=== PATIENT | female | born 1990 | race Hispanic/Latino ===

== ENCOUNTER 2018-05-20 16:56 | Inpatient (IN) | payer MEDICAID, OTHER ==
[2018-05-20 18:53] LABS: Hematocrit 27.4 % (30.3-42.9); Hemoglobin 9.2 gm/dl (10.1-14.3); Mean Corpuscular HGB Conc 34 % (30-34); Mean Corpuscular Volume 87 fl (79-97); Platelet Count 266 K/mm3 (140-440); Red Blood Count 3.15 M/mm3 (3.65-5.03); Red Cell Distribution Width 13.8 % (13.2-15.2)
[2018-05-20 19:12] LABS: BUN/Creatinine Ratio 18; Blood Urea Nitrogen 9 mg/dL (7-17); Hemolysis Index 0
--- NOTE | 2018-05-20 20:19 | Ultrasound Report ---
FINAL REPORT PROCEDURE: US OB >= 14 WEEKS FETUS TECHNIQUE: Real-time transabdominal sonography of the uterus, placenta, amniotic fluid, adnexa, and fetus was performed with image documentation. Measurements were obtained to determine age/size. M-mode Doppler was used to document heartbeat. CPT 09178 HISTORY: bleeding and cramping COMPARISON: No prior studies are available for comparison. FINDINGS: ADDITIONAL GESTATION: None. GENERAL: IUP: Single living intrauterine . Position: Cephalic Placental position: Posterior with grade 0 maturity., Without previa. Amniotic fluid volume: Amnioti c fluid index is < 1 centimeter MATERNAL: Uterus: Within normal limits. Cervical length: 3.2 cm. Internal Os: Closed. FETUS: Heart rate and rhythm: 164 beats per minute and regular MEASUREMENTS: BPD: 5.8 centimeters corresponding to 23 weeks and 6 days HC: 20.5 centimeters corresponding to 22 weeks and 5 days AC: 20.0 centimeters corresponding to 24 weeks and 4 days FL: 4 centimeters corresponding to 23 weeks and 0 days Mean Gestational Age (composite criteria): 23 weeks and 4 days Ratio biometry: Normal. Estimated Weight: 624 grams. Estimated Due Date: 09/12/2018 IMPRESSION: Single intrauterine gestation at 23 weeks and 4 days. Estimated due date: 09/12/2018. Amniotic fluid index is < 1 centimeter
--- NOTE | 2018-05-20 21:45 | Emergency Department Report ---
ED Female HPI - General Chief complaint: Vaginal Bleeding Stated complaint: PASSING CLOTS Time Seen by Provider: 05/20/18 19:34 Source: patient Mode of arrival: Ambulatory Limitations: No Limitations - History of Present Illness Initial comments: This is a 27-year-old 002 who presents to ED at approximately 23 weeks . Patient states that she has been having some vaginal bleeding for the past 2 weeks which diagnosis sciatica. Patient states she went to [facility] to be evaluated and ventilation was about 19 . Patient states she did not know that she was . Hence she has no TITLE I DIRECTOR and has not received care this . She denies pelvic pain. Complaint: vaginal bleeding - Related Data Allergies Allergy/AdvReac Type Severity Reaction Status Date / Time No Known Allergies Allergy Unverified 05/20/18 17:18 ED Review of Systems ROS: Stated complaint: PASSING CLOTS Other details as noted in HPI Comment: All other systems reviewed and negative ED Past Medical Hx - Past Medical History Previous Medical History?: No - Surgical History Past Surgical History?: No - Social History Smoking Status: Current Every Day Smoker Substance Use Type: None ED Physical Exam - General Limitations: No Limitations General appearance: alert, in no apparent distress - Head Head exam: Present: atraumatic, normocephalic - Eye Eye exam: Present: normal appearance - ENT ENT exam: Present: mucous membranes moist - Neck Neck exam: Present: normal inspection - Respiratory Respiratory exam: Present: normal lung sounds bilaterally. Absent: respiratory distress - Cardiovascular Cardiovascular Exam: Present: regular rate, normal rhythm. Absent: systolic murmur, diastolic murmur, rubs, gallop - GI/Abdominal GI/Abdominal exam: Present: soft, normal bowel sounds, other (gravid). Absent: distended, tenderness - Extremities Exam Extremities exam: Present: normal inspection - Back Exam Back exam: Present: normal inspection - Neurological Exam Neurological exam: Present: alert, oriented X3 - Psychiatric Psychiatric exam: Present: normal affect, normal mood - Skin Skin exam: Present: warm, dry, intact, normal color. Absent: rash ED Course Vital Signs 05/20/18 17:13 Pulse Rate 100 H Respiratory 16 Rate Blood Pressure 142/63 O2 Sat by Pulse 100 Oximetry ED Medical Decision Making - Lab Data Result diagrams: 05/20/18 18:37 05/20/18 18:37 - Radiology Data Radiology results: report reviewed, image reviewed FINDINGS: ADDITIONAL GESTATION: None. GENERAL: IUP: Single living intrauterine . Position: Cephalic Placental position: Posterior with grade 0 maturity., Without previa. Amniotic fluid volume: Amniotic fluid index is lt; 1 centimeter MATERNAL: Uterus: Within normal limits. Cervical length: 3.2 cm. Internal Os: Closed. FETUS: Heart rate and rhythm: 164 beats per minute and regular MEASUREMENTS: BPD: 5.8 centimeters corresponding to 23 weeks and 6 days HC: 20.5 centimeters corresponding to 22 weeks and 5 days AC: 20.0 centimeters corresponding to 24 weeks and 4 days FL: 4 centimeters corresponding to 23 weeks and 0 days Mean Gestational Age (composite criteria): 23 weeks and 4 days Ratio biometry: Normal. Estimated Weight: 624 grams. Estimated Due Date: 09/12/2018 IMPRESSION: Single intrauterine gestation at 23 weeks and 4 days. Estimated due date: 09/12/2018. Amniotic fluid index is lt; 1 centimeter Transcribed By: [facility] Dictated By: CRISTIAN SIMMONS Electronically Authenticated By: CRISTIAN SIMMONS Signed Date/Time: 05/20/182018 - Medical Decision Making 27-year-old female 002 with no care presents at 23 weeks gestation Ultrasound shows patient amniotic fluid index 1 cm which is low. Dr. Rich Marsh TITLE I DIRECTOR attending notified Patient to labor and delivery. Patient has received no care at this . 1 L of fluids started. Patient was sent to labor and delivery in stable condition. Critical care attestation.: If time is entered above; I have spent that time in minutes in the direct care of this critically ill patient, excluding procedure time. ED Disposition Clinical Impression: Low amniotic fluid Disposition: OP ADMIT IP TO THIS HOSP Is pt being admited?: Yes Does the pt Need Aspirin: No Condition: Stable Referrals: FELICIA LAWSON DO [Primary Care Provider] - 3-5 Days
[2018-05-20] MEDS ORDERED: NACL 0.9% 1000 ML 1,000 ML IV ONE (21:56)
[2018-05-20] MEDS ORDERED: LACTATED RINGERS 1,000 ML IV ONE (23:55)
[2018-05-21] MEDS ORDERED: SUBLIMAZE IV ONE (00:58)
[2018-05-21] MEDS ORDERED: MINERAL OIL PO PRN (01:42)
[2018-05-21] MEDS ORDERED: XYLOCAINE 2% INFILTRATI ONE (01:42)
[2018-05-21] MEDS ORDERED: BRETHINE SUB-Q PRN (01:42)
[2018-05-21] MEDS ORDERED: BRETHINE IVP PRN (01:42)
[2018-05-21] MEDS ORDERED: BENADRYL PO PRN (01:46)
[2018-05-21] MEDS ORDERED: NORCO 5/325 PO PRN (01:46)
[2018-05-21] MEDS ORDERED: ZOFRAN IV PRN (01:46)
[2018-05-21] MEDS ORDERED: DULCOLAX PR PRN (01:46)
[2018-05-21] MEDS ORDERED: TUCKS PAD TP PRN (01:46)
[2018-05-21] MEDS ORDERED: PHENERGAN PO PRN (01:46)
[2018-05-21] MEDS ORDERED: LANSINOH TP PRN (01:46)
[2018-05-21] MEDS ORDERED: TYLENOL PO PRN (01:46)
[2018-05-21] MEDS ORDERED: MILK OF MAGNESIA PO PRN (01:46)
[2018-05-21] MEDS ORDERED: PHENERGAN PR PRN (01:46)
[2018-05-21] MEDS ORDERED: CYTOTEC PR ONE (01:46)
--- NOTE | 2018-05-21 01:57 | History and Physical Report ---
History of Present Illness Date of examination: 05/21/18 Date of admission: 05/21/18 00:50 Chief complaint: labor History of present illness: Pt is a 27yo WF EDC 09/12/18; EGA 23 4/7 weeks Past History Past Medical History: kidney stones Past Surgical History: no surgical history Family/Genetic History: none Social history: no significant social history, single - Obstetrical History Expected Date of Delivery: 09/12/18 Actual Gestation: 23 Week(s) 5 Day(s) : 3 Medications and Allergies Allergies Allergy/AdvReac Type Severity Reaction Status Date / Time No Known Allergies Allergy Verified 05/21/18 00:03 Active Meds: Active Medications Ephedrine Sulfate (Ephedrine Sulfate) 10 mg IV Q2M PRN PRN Reason: Hypotension Lactated Ringer's (Lactated Ringers) 1,000 mls @ 125 mls/hr IV DIRECT AMEYA Oxytocin/Sodium Chloride (Pitocin/Ns 20 Unit/1000ml Drip) 20 units in 1,000 mls @ 125 mls/hr IV DIRECT AMEYA Oxytocin/Sodium Chloride (Pitocin/Ns 30 Unit/500ml) 30 units in 500 mls @ 1 mls/hr IV TITR AMEYA; Protocol Lidocaine (Xylocaine 2%) 20 ml INFILTRATI ONCE ONE Stop: 05/21/18 01:43 Mineral Oil (Mineral Oil) 30 ml PO QHS PRN PRN Reason: Constipation Terbutaline Sulfate (Brethine) 0.25 mg SUB-Q ONCE PRN PRN Reason: Hyperstimulation/Hypertonicity Terbutaline Sulfate (Brethine) 0.25 mg IVP ONCE PRN PRN Reason: Hyperstimulation/Hypertonicity Review of Systems All systems: negative - Vital Signs Vital signs: Vital Signs Pulse Resp BP Pulse Ox 100 H 16 142/63 100 05/20/18 17:13 05/20/18 17:13 05/20/18 17:13 05/20/18 17:13 Temp Pulse Resp BP Pulse Ox 98.9 F 123 H 20 136/66 100 05/20/18 23:46 05/21/18 01:44 05/20/18 23:46 05/21/18 01:44 05/20/18 17:13 - Physical Exam Breasts: Positive: deferred Cardiovascular: Regular rate Lungs: Positive: Clear to auscultation Abdomen: Positive: normal appearance Genitourinary (Female): Positive: normal external genitalia Uterus: Positive: enlarged Extremities: Positive: normal - Obstetrical FHR: category 1 Uterine Contraction Monitor Mode: External Results Result Diagrams: 05/20/18 18:37 05/20/18 18:37 Abnormal lab results 05/20/18 05/20/18 05/20/18 Range/Units 18:37 18:37 18:37 WBC 17.7 H (4.5-11.0) K/mm3 RBC 3.15 L (3.65-5.03) M/mm3 Hgb 9.2 L (10.1-14.3) gm/dl Hct 27.4 L (30.3-42.9) % Chloride 108.5 H (98-107) mmol/L Creatinine 0.5 L (0.7-1.2) mg/dL HCG, Quant 99624 H (0-4) mIU/mL All other labs normal. Assessment and Plan - Patient Problems (1) 23 weeks gestation of Onset Date: 05/21/18 Current Visit: Yes Status: Acute Plan to address problem: A: IUP @ 23 5/7 weeks in labor Oligohydramnios No care P: Admit to L&D for expectant vaginal delivery Obtain labs NICU consultation. (2) Oligohydramnios in second trimester Onset Date: 05/21/18 Current Visit: Yes Status: Acute Qualifiers: Fetus number: single or unspecified fetus Qualified Code(s): O41.02X0 - Oligohydramnios, second trimester, not applicable or unspecified (3) No care in current Onset Date: 05/21/18 Current Visit: Yes Status: Acute Qualifiers: Trimester: second trimester Qualified Code(s): O09.32 - Supervision of with insufficient care, second trimester
[2018-05-21] MEDS ORDERED: SUBLIMAZE ONE (01:58)
--- NOTE | 2018-05-21 01:59 | Procedure Note ---
OB Delivery Note - Delivery Date of Delivery: 05/21/18 Surgeon: ERICK BROWN Estimated blood loss: 300cc - Vaginal Delivery presentation: vertex Delivery position: OA Intrapartum events: no care, labor-<37 weeks, PROM->1hr before delivery, hydramnios, precipitous labor- <3hr Delivery induction: none Delivery monitor: external FHT Route of delivery: Delivery placenta: spontaneous Delivery cord: 3 umbilical vessels Episiotomy: none Delivery laceration: none Anesthesia: none Delivery comments: delivered OA and handed to awaiting Peds/RT in attendance - Infant A at 1 minute: 6 at 5 minutes: 8 Gender: Male (520gms)
[2018-05-21] MEDS ORDERED: PITOCin/NS 30 UNIT/500ML 30 UNITS/500 ML BAG IV SCH (02:00)
[2018-05-21] MEDS ORDERED: PITOCin/NS 20 UNIT/1000ML DRIP 20 UNITS/1,000 ML BAG IV SCH ×2 (02:00)
[2018-05-21] MEDS ORDERED: SODIUM CHLORIDE FLUSH SYRINGE 10 ML IV PRN (02:00)
[2018-05-21] MEDS ORDERED: LACTATED RINGERS 1,000 ML IV SCH (02:00)
[2018-05-21] MEDS: IBUPROFEN PO SCH ×4 (02:36→23:32)
[2018-05-21 03:12] LABS: Bilirubin,Urine NEG (Negative); Blood,Urine LG (Negative); Color,Urine Red (Yellow); Mucus,Urine FEW /HPF; Urobilinogen,Urine < 2.0 mg/dL (<2.0)
[2018-05-21 03:21] LABS: Bacteria,Urine 2+ /HPF (Negative); RBC,Urine > 182.0 /HPF (0.0-6.0)
[2018-05-21 03:22] LABS: Benzodiazepines Screen,Urine PRESUMPTIVE NEGATIVE; Cannabinoid Screen,Urine PRESUMPTIVE NEGATIVE; Cocaine Screen,Urine PRESUMPTIVE NEGATIVE; Methadone Screen,Urine PRESUMPTIVE NEGATIVE; Opiate Screen,Urine PRESUMPTIVE NEGATIVE
[2018-05-21 03:35] LABS: Amphetamine Screen,Urine PRESUMPTIVE POSITIVE
[2018-05-21] MEDS ORDERED: CYTOTEC ONE (04:35)
[2018-05-21] MEDS: FEOSOL PO SCH ×2 (12:40→21:41)
[2018-05-21] MEDS: PRENATAL VITAMIN PO SCH (12:40)
[2018-05-21 13:48] LABS: Hemoglobin 7.4 gm/dl (10.1-14.3)
[2018-05-21] MEDS ORDERED: AFLURIA QUAD 2018-2019 SYRINGE IM ONE (15:17)
[2018-05-21 20:03] LABS: Hematocrit 23.5 % (30.3-42.9); Hemoglobin 7.6 gm/dl (10.1-14.3); Mean Corpuscular HGB Conc 33 % (30-34); Mean Corpuscular Volume 88 fl (79-97); Platelet Count 218 K/mm3 (140-440); Red Blood Count 2.67 M/mm3 (3.65-5.03); Red Cell Distribution Width 13.8 % (13.2-15.2)
[2018-05-21 21:16] LABS: Basophils % (Manual) 0 % (0.0-1.8); Total Cells Counted 100
[2018-05-21 21:18] LABS: Giant Platelets Few; Platelet Estimate Consistent w Auto
[2018-05-21] MEDS: COLACE PO SCH (21:41)
[2018-05-22] MEDS ORDERED: M-M-R II VACCINE SUB-Q ONE ×2 (01:46→16:00)
[2018-05-22] MEDS ORDERED: BACTRIM DS PO SCH (04:00)
[2018-05-22] MEDS: IBUPROFEN PO SCH ×2 (05:15→12:34)
[2018-05-22] MEDS ORDERED: BOOSTRIX IM ONE (06:00)
[2018-05-22] MEDS: PRENATAL VITAMIN PO SCH (10:52)
[2018-05-22] MEDS: COLACE PO SCH (10:52)
[2018-05-22] MEDS: FEOSOL PO SCH (10:52)
--- NOTE | 2018-05-22 15:46 | Progress Note ---
Subjective - Subjective Date of service: 05/22/18 Principal diagnosis: day 1 S/P of Interval history: progress note for 05/21/2018. S: day 1 S/P of very who got transferred to [place]. Patient desires discharge so she can go see her baby. Patient is doing well. She is voiding without difficulty and ambulating well. She is tolerating a regular diet without nausea or vomiting. Patient denies headache, chest pain, cough, shortness of breath, leg pain, abdominal pain, heavy vaginal bleeding, or any other symptoms. Patient agrees to come to [facility] office this week to have a repeat CBC. O: Patient is well appearing, alert and oriented, NAD. Afebrile. VSS. Lungs CTAB. Heart RRR without murmur. Abdomen soft, nontender. Fundus firm and midline. Extremities without edema or pain bilaterally. Hemoglobin 7.6. Hematocrit 23.5 A: day 1 S/P of infant. Anemia. P: Discharge patient home today. discharge instructions and warning signs discussed with patient in detail. Advised pt. to avoid intercourse, driving, lifting and heavy housework. Advised pt. to follow up at [facility] in 3 days for repeat CBC. Warning signs discussed with patient in detail. Objective - Vital Signs Vital Signs: Vital Signs - 12hr 05/22/18 05/22/18 07:56 12:34 Temperature 98.4 F Pulse Rate 85 Respiratory 16 18 Rate Blood Pressure 123/46 O2 Sat by Pulse 97 Oximetry - Labs Labs: Abnormal Labs 05/20/18 05/20/18 05/20/18 18:37 18:37 18:37 WBC 17.7 H RBC 3.15 L Hgb 9.2 L Hct 27.4 L Seg Neuts % (Manual) Seg Neutrophils # Man Chloride 108.5 H Creatinine 0.5 L HCG, Quant 69013 H Urine WBC (Auto) 05/21/18 05/21/18 05/21/18 02:20 13:13 19:22 WBC 16.4 H RBC 2.67 L Hgb 7.4 L 7.6 L Hct 23.0 L 23.5 L Seg Neuts % (Manual) 71.0 H Seg Neutrophils # Man 11.6 H Chloride Creatinine HCG, Quant Urine WBC (Auto) 67.0 H Laboratory Results - last 24 hr 05/21/18 19:22 WBC 16.4 H RBC 2.67 L Hgb 7.6 L Hct 23.5 L MCV 88 MCH 29 MCHC 33 RDW 13.8 Plt Count 218 Add Manual Diff Complete Total Counted 100 Seg Neuts % (Manual) 71.0 H Band Neutrophils % 6.0 Lymphocytes % (Manual) 16.0 Reactive Lymphs % (Man) 0 Monocytes % (Manual) 5.0 Eosinophils % (Manual) 1.0 Basophils % (Manual) 0 Metamyelocytes % 1.0 Myelocytes % 0 Promyelocytes % 0 Blast Cells % 0 Nucleated RBC % Not Reportable Seg Neutrophils # Man 11.6 H Band Neutrophils # 1.0 Lymphocytes # (Manual) 2.6 Abs React Lymphs (Man) 0.0 Monocytes # (Manual) 0.8 Eosinophils # (Manual) 0.2 Basophils # (Manual) 0.0 Metamyelocytes # 0.2 Myelocytes # 0.0 Promyelocytes # 0.0 Blast Cells # 0.0 WBC Morphology Not Reportable Hypersegmented Neuts Not Reportable Hyposegmented Neuts Not Reportable Hypogranular Neuts Not Reportable Smudge Cells Not Reportable Toxic Granulation Not Reportable Toxic Vacuolation Not Reportable Dohle Bodies Not Reportable Pelger-Huet Anomaly Not Reportable Clifford Rods Not Reportable Platelet Estimate Consistent w auto Clumped Platelets Not Reportable Plt Clumps, EDTA Not Reportable Large Platelets Not Reportable Giant Platelets Few Platelet Satelliting Not Reportable Plt Morphology Comment Not Reportable RBC Morphology Not Reportable Dimorphic RBCs Not Reportable Polychromasia Few Hypochromasia Not Reportable Poikilocytosis Not Reportable Anisocytosis Not Reportable Microcytosis Not Reportable Macrocytosis Not Reportable Spherocytes Not Reportable Pappenheimer Bodies Not Reportable Sickle Cells Not Reportable Target Cells Not Reportable Tear Drop Cells Not Reportable Ovalocytes Not Reportable Helmet Cells Not Reportable Castillo-Satartia Bodies Not Reportable [place] Rings Not Reportable Viviana Cells Not Reportable Bite Cells Not Reportable Crenated Cell Not Reportable Elliptocytes Not Reportable Acanthocytes (Spur) Not Reportable Rouleaux Not Reportable Hemoglobin C Crystals Not Reportable Schistocytes Not Reportable Malaria parasites Not Reportable Gerardo Bodies Not Reportable Hem Pathologist Commnt No
--- NOTE | 2018-05-22 16:49 | Discharge Summary ---
Providers - Providers Date of Admission: 05/21/18 00:50 Date of discharge: 05/22/18 Attending physician: KATRIN GOTTLIEB 05/21/18 09:17 Consult to Case Management [CONS] Routine Services Needed at Discharge: Pattern Puncher Notified:: yes Phone number called:: [phone] Was contact made?: Yes If yes, spoke with:: marley Time called:: 09:18 Primary care physician: FELICIA LAWSON Hospitalization Condition: Good Pertinent studies: Labs Procedures: Hospital course: Stable hospital course. Disposition: DC-01 TO HOME OR SELFCARE - Discharge Diagnoses (1) 23 weeks gestation of Status: Acute Core Measure Documentation - Palliative Care Palliative Care/ Comfort Measures: Not Applicable - Core Measures Any of the following diagnoses?: none - VTE Discharge Requirements Deep Vein Thrombosis/Pulmonary Embolism Present on Admission: No Has pt received <5 days of overlap therapy or INR<2.0: No Anticoagulant overlap therapy prescribed at discharge: No Contraindication No Overlap Therapy order at DC: Not Indicated - Acute MO Discharge Requirements Aspirin at discharge: No SARAN/ARB for LVSD if EF <40%: No Beta alexi at discharge: No Reason for no beta alexi on DC: Medical contraindication Statin for LDL = or >100 mg/dl on DC: No Reason for no statin on DC: Medical contraindication - Heart Failure Discharge Requirements SARAN/ARB for LVSD if EF <40%: Not Applicable - Stroke Discharge Requirements Reason for no statin on DC: Medical Contraindication Exam - Constitutional Vitals: Temp Pulse Resp BP Pulse Ox 98.4 F 85 18 123/46 97 05/22/18 07:56 05/22/18 07:56 05/22/18 12:34 05/22/18 07:56 05/22/18 07:56 General appearance: Present: no acute distress - Respiratory Respiratory effort: normal - Cardiovascular Rhythm: regular Heart Sounds: Present: S1 & S2 - Extremities Extremities: No edema - Abdominal General gastrointestinal: Present: soft - Integumentary Integumentary: Present: warm, dry - Psychiatric Psychiatric: appropriate mood/affect Plan Activity: other (Avoid IC, lifting, driving, and heavy housework. ) Weight Bearing Status: Full Weight Bearing Diet: regular Special Instructions: no heavy lifting Follow up with: KATRIN GOTTLIEB MD [Staff Physician] - 3 Days Forms: [facility] Discharge Summary Prescriptions: Ferrous Sulfate [Feosol 325 MG tab] 325 mg PO BID 30 Days #60 tablet
[2018-05-23 11:45] VITALS: BP 139/54
--- NOTE | 2018-08-10 10:48 | Discharge Summary ---
Providers - Providers Date of Admission: 05/21/18 00:50 Date of discharge: 05/22/18 Attending physician: KATRIN GOTTLIEB 05/21/18 09:17 Consult to Case Management [CONS] Routine Services Needed at Discharge: Instructional Paraprofessional Notified:: yes Phone number called:: [phone] Was contact made?: Yes If yes, spoke with:: marley Time called:: 09:18 Primary care physician: FELICIA LAWSON Hospitalization Reason for admission: labor Delivery: Episiotomy: none Laceration: none Other procedures: none complications: none Discharge diagnosis: delivery Pertinent studies: Labs Hospital course: Normal hospital course Condition at discharge: Good Disposition: DC-01 TO HOME OR SELFCARE - Discharge Diagnoses (1) 23 weeks gestation of Status: Acute (2) delivery Status: Acute Plan - Discharge Medications Prescriptions: Ferrous Sulfate [Feosol 325 MG tab] 325 mg PO BID 30 Days #60 tablet - Provider Discharge Summary Activity: routine, no sex for 6 weeks, no heavy lifting 4 weeks, no strenuous exercise Diet: routine Instructions: routine Additional instructions: Call your doctor immediately for: * Fever > 100.5 * Heavy vaginal bleeding ( >1 pad per hour) * Severe persistent headache * Shortness of breath * Reddened, hot, painful area to leg or breast - Follow up plan Follow up: KATRIN GOTTLIEB MD [Staff Physician] - 7 Days
== END 2018-05-22 16:00 | disposition home or self-care (01) | DRG 805 ==
LOC: TRG 16:56 → ED 16:56 → EDSTATUS 23:05 → TRG 23:16 → APU 05-21 00:50 → LD 05-21 01:26 → OB 05-21 02:53
PROVIDERS: ADMIT Obstetrics & Gynecology; ATTEND Obstetrics & Gynecology
PROC: 10E0XZZ Delivery of Products of Conception, External Approach (ICD-10-PCS; principal; 2018-05-21)
PROC: 3E0234Z Introduction of Serum, Toxoid and Vaccine into Muscle, Percutaneous Approach (ICD-10-PCS; 2018-05-22)
DX: O42.012 Preterm premature rupture of membranes, onset of labor within 24 hours of rupture, second trimester (principal); O60.12X0 Preterm labor second trimester with preterm delivery second trimester, not applicable or unspecified; Z37.0 Single live birth; O99.334 Smoking (tobacco) complicating childbirth; F17.210 Nicotine dependence, cigarettes, uncomplicated; O62.3 Precipitate labor; O90.81 Anemia of the puerperium; D64.9 Anemia, unspecified; Z3A.23 23 weeks gestation of pregnancy; Z23 Encounter for immunization
CPT/HCPCS: 36415; 76805; 80048; 80307; 81001; 84702; 85007; 85014; 85018; 85025; 85027; 86592; 86706; 86762; 86850; 86900; 86901; 87806; 88305; 90471; 90686; 90707; 90715; G0378; G0008; J2590; J3010; J7120

== ENCOUNTER 2018-07-18 23:55 | Emergency (ER) | payer MEDICAID ==
[2018-07-19 02:12] LABS: HCG Qualitative,Urine Negative (Negative)
--- NOTE | 2018-07-19 02:37 | XRay Report ---
PROCEDURE: XR CHEST ROUTINE 2V TECHNIQUE: PA and lateral chest radiographs were obtained. HISTORY: cough COMPARISONS: None. FINDINGS: Heart: Normal. Mediastinum/Vessels: Normal. Lungs/Pleural space: Mild infiltrate right lower lung. Bony thorax: No acute osseous abnormality. IMPRESSION: Mild infiltrate right lower lung. This document is electronically signed by Maria C Almanza DO., July 19 2018 02:35:52 AM ET
--- NOTE | 2018-07-19 03:47 | Emergency Department Report ---
- General Chief Complaint: Upper Respiratory Infection Stated Complaint: CHEST PAIN HEADACHE COUGH Time Seen by Provider: 07/19/18 03:02 Source: patient Mode of arrival: Stretcher Limitations: No Limitations - History of Present Illness Initial Comments: Pt is a 27 yo female who presents to the ED with c/o a non productive cough that began a week ago. The patient has associated nasal congestion. She denies any sore throat, ear ache, or fever. Pt is a current smoker. She denies any PMHx or being on any medications. Pt states she began taking dayquil today. She denies any hx of asthma. - Related Data Previous Rx's Medication Instructions Recorded Last Taken Type Ferrous Sulfate [Feosol 325 MG tab] 325 mg PO BID 30 Days #60 tablet 05/21/18 Unknown Rx Azithromycin [Zithromax] 250 mg PO DAILY 5 Days #6 tablet 07/19/18 Unknown Rx Benzonatate [Tessalon Perles] 100 mg PO Q8HR PRN #20 capsule 07/19/18 Unknown Rx Prednisone [predniSONE 10 mg 10 mg PO .TAPER 6 Days #1 tab.ds.pk 07/19/18 Unknown Rx (6-Day Pack, 21 Tabs)] guaiFENesin [Mucinex] 600 mg PO BID #14 tab.er.12h 07/19/18 Unknown Rx Allergies Allergy/AdvReac Type Severity Reaction Status Date / Time No Known Allergies Allergy Verified 05/21/18 00:03 ED Review of Systems ROS: Stated complaint: CHEST PAIN HEADACHE COUGH Other details as noted in HPI Comment: All other systems reviewed and negative ED Past Medical Hx - Past Medical History Previous Medical History?: Yes Hx Hypertension: No Hx Congestive Heart Failure: No Hx Diabetes: No Hx Deep Vein Thrombosis: No Hx Renal Disease: Yes (kidney stones- stent) Hx Sickle Cell Disease: No Hx Seizures: No Hx Asthma: No Hx COPD: No Hx HIV: No - Surgical History Past Surgical History?: No - Social History Smoking Status: Current Every Day Smoker Substance Use Type: None - Medications Home Medications: Home Medications Medication Instructions Recorded Confirmed Last Taken Type Ferrous Sulfate [Feosol 325 MG tab] 325 mg PO BID 30 Days #60 tablet 05/21/18 Unknown Rx Azithromycin [Zithromax] 250 mg PO DAILY 5 Days #6 tablet 07/19/18 Unknown Rx Benzonatate [Tessalon Perles] 100 mg PO Q8HR PRN #20 capsule 07/19/18 Unknown Rx Prednisone [predniSONE 10 mg 10 mg PO .TAPER 6 Days #1 tab.ds.pk 07/19/18 Unknown Rx (6-Day Pack, 21 Tabs)] guaiFENesin [Mucinex] 600 mg PO BID #14 tab.er.12h 07/19/18 Unknown Rx ED Physical Exam - General Limitations: No Limitations General appearance: alert, in no apparent distress - Head Head exam: Present: atraumatic, normocephalic - Eye Eye exam: Present: normal appearance - Respiratory Respiratory exam: Present: rhonchi (right lung base). Absent: respiratory distress, wheezes, rales, stridor, chest wall tenderness, accessory muscle use, decreased breath sounds, prolonged expiratory - Cardiovascular Cardiovascular Exam: Present: regular rate, normal rhythm, normal heart sounds. Absent: systolic murmur, rubs, gallop - Neurological Exam Neurological exam: Present: alert, oriented X3 - Psychiatric Psychiatric exam: Present: normal affect, normal mood - Skin Skin exam: Present: warm, dry, intact ED Course Vital Signs 07/18/18 07/19/18 23:58 04:42 Temperature 99.6 F 100.5 F H Pulse Rate 119 H 104 H Respiratory 18 20 Rate Blood Pressure 146/69 Blood Pressure 122/54 [Left] O2 Sat by Pulse 98 97 Oximetry ED Medical Decision Making - Radiology Data Radiology results: report reviewed HISTORY: cough COMPARISONS: None. FINDINGS: Heart: Normal. Mediastinum/Vessels: Normal. Lungs/Pleural space: Mild infiltrate right lower lung. Bony thorax: No acute osseous abnormality. IMPRESSION: Mild infiltrate right lower lung. This document is electronically signed by Maria C Almanza DO., July 19 2018 02:35:52 AM ET - Medical Decision Making Pt is a 27 yo female who presents to the ED with c/o a non productive cough that began a week ago. The patient has associated nasal congestion. She denies any sore throat, ear ache, or fever. Pt is a current smoker. She denies any PMHx or being on any medications. Pt states she began taking dayquil today. She denies any hx of asthma. Pt given ibuprofen for a temperature of 100.5, advised to alternate tylenol and motrin for a temperature of 100.4 or greater. oxygen saturation and RR WNL. HR improved. Pt has dry cough frequently during examination and while taking vital signs. CXR shows a Mild infiltrate right lower lung. Will tx as a community acquired PNA. Discussed results with pt. Advised pt to follow up with PCP in the next 2-3 days. Take all medication as prescribed. Return to the emergency room for any new or worsening symptoms. Critical care attestation.: If time is entered above; I have spent that time in minutes in the direct care of this critically ill patient, excluding procedure time. ED Disposition Clinical Impression: PNA (pneumonia) Qualifiers: Pneumonia type: due to unspecified organism Laterality: right Lung location: lower lobe of lung Qualified Code(s): J18.1 - Lobar pneumonia, unspecified organism Disposition: TO HOME OR SELFCARE Is pt being admited?: No Does the pt Need Aspirin: No Condition: Stable Instructions: Community-acquired Pneumonia (ED) Additional Instructions: Take all medication as prescribed. Follow up with a primary care doctor in the next 2-3 days. Return to the emergency room for any new or worsening symptoms. Alternate tylenol or motrin for a temperature of 100.4 or greater. Prescriptions: guaiFENesin [Mucinex] 600 mg PO BID #14 tab.er.12h Prednisone [predniSONE 10 mg (6-Day Pack, 21 Tabs)] 10 mg PO .TAPER 6 Days #1 tab.ds.pk Benzonatate [Tessalon Perles] 100 mg PO Q8HR PRN #20 capsule PRN Reason: Cough Azithromycin [Zithromax] 250 mg PO DAILY 5 Days #6 tablet Referrals: ALEXANDER CANAS MD [Primary Care Provider] - 2-3 Days Time of Disposition: 03:54 Print Language: NIUEAN
[2018-07-19] MEDS ORDERED: IBUPROFEN PO ONE ×2 (04:37→04:43)
[2018-07-19 04:43] VITALS: BP 122/54
== END 2018-07-19 04:48 | disposition home or self-care (01) ==
LOC: ED 23:55
DX: J18.1 Lobar pneumonia, unspecified organism (principal); F17.200 Nicotine dependence, unspecified, uncomplicated
CPT/HCPCS: 71046; 81025